=== PATIENT | male | born 1945 | race Caucasian/White ===

== ENCOUNTER → 2017-07-12 | Outpatient (CLI) | payer MEDICARE ==
[~2017-07-12] MED LIST: FENTANYL PF 100 MCG/2ML IVPush ONE; LIDOCAINE 1%, 20ML SQ ONE; MIDAZOLAM 1 MG/ML, 2ML IVPush ONE
== END ==
LOC: CYBERKNIFE 07:53 → ROC 15:22 → EDSTATUS 15:22
PROVIDERS: ATTEND Radiology Radiation Oncology
DX: C61 Malignant neoplasm of prostate (principal)
CPT/HCPCS: 76942; 77332; 99156; A4648; J2250; J3010; J3490

== ENCOUNTER → 2017-07-19 | Outpatient (CLI) | payer MEDICARE | END | disposition home or self-care (01) | LOC: CFH 10:03 | PROVIDERS: ATTEND Radiology Radiation Oncology | DX: C61 Malignant neoplasm of prostate (principal); K57.30 Diverticulosis of large intestine without perforation or abscess without bleeding | CPT/HCPCS: 72195 ==

== ENCOUNTER → 2017-11-07 | Outpatient (CLI) | payer MEDICARE | LOC: ROC 08:43 | PROVIDERS: ATTEND Radiology Radiation Oncology | DX: C61 Malignant neoplasm of prostate (principal); I25.10 Atherosclerotic heart disease of native coronary artery without angina pectoris; E78.00 Pure hypercholesterolemia, unspecified | CPT/HCPCS: G0463 ==

== ENCOUNTER → 2018-05-03 | Outpatient (CLI) | payer MEDICARE | END | disposition home or self-care (01) | LOC: ROC 09:39 | PROVIDERS: ATTEND Radiology Radiation Oncology | DX: C61 Malignant neoplasm of prostate (principal) | CPT/HCPCS: G0463 ==

== ENCOUNTER → 2018-11-06 | Outpatient (CLI) | payer MEDICARE | END | disposition home or self-care (01) | LOC: ROC 07:46 | PROVIDERS: ATTEND Radiology Radiation Oncology | DX: Z08 Encounter for follow-up examination after completed treatment for malignant neoplasm (principal); Z85.49 Personal history of malignant neoplasm of other male genital organs | CPT/HCPCS: G0463 ==

== ENCOUNTER → 2019-11-12 | Outpatient (CLI) | payer MEDICARE | END | disposition home or self-care (01) | LOC: ROC 09:17 | PROVIDERS: ATTEND Radiology Radiation Oncology | DX: C61 Malignant neoplasm of prostate (principal) | CPT/HCPCS: 99215; G0463 ==

== ENCOUNTER → 2020-11-17 | Outpatient (CLI) | payer MEDICARE | END | disposition home or self-care (01) | LOC: ROC 09:13 | PROVIDERS: ATTEND Radiology Radiation Oncology | DX: Z08 Encounter for follow-up examination after completed treatment for malignant neoplasm (principal); Z85.46 Personal history of malignant neoplasm of prostate | CPT/HCPCS: G2251 ==